=== PATIENT | female | born 1995 | race African-American/Black ===

== ENCOUNTER 2016-08-20 04:13 | Emergency (ER) | payer OTHER ==
[~2016-08-20] VITALS: Ht 170.2 cm; Wt 68.0 kg
[2016-08-20] MEDS ORDERED: ACCUNEB SO1.25 MG/1 INH (04:21)
[2016-08-20 04:37] LABS: CALCIUM 9.3 mg/dL (8.5-10.1); CREATININE 0.9 mg/dL (0.6-1.0); POTASSIUM 3.5 mmol/L (3.5-5.1)
[2016-08-20 04:51] LABS: BASOPHILS 0.8 % (0.0-2.0); EOSINOPHILS 0.2 % (0.0-3.0); HEMATOCRIT 24.6 % (37.0-47.0); HEMOGLOBIN 7.7 gm/dL (12.0-15.0); LYMPHOCYTES 41.1 % (24.0-44.0); MCH 22.1 pg (26.0-34.0); MCHC 31.3 g/dL (28.0-37.0); MCV 70.7 fL (80.0-100.0); MONOCYTES 6.2 % (1.0-8.0); PLATELET COUNT 401 thou/uL (150-400); POLYS 51.7 % (36.0-66.0); RBC 3.48 mil/uL (4.20-5.00); RDW 22.1 % (10.5-14.5); WBC 7.8 thou/uL (4.0-11.0)
[2016-08-20 04:55] LABS: MANUAL DIFF NO
[2016-08-20 05:20] VITALS: BP 124/87
[2016-08-20 05:44] LABS: ANISOCYTOSIS 2+; HYPOCHROMASIA 2+; MICROCYTES 1+
== END 2016-08-20 05:26 | disposition home or self-care (01) ==
LOC: ER 04:13 → EDBD 04:13 → ER 04:13
PROVIDERS: Emergency Medicine
DX: F10.120 Alcohol abuse with intoxication, uncomplicated (principal); D50.9 Iron deficiency anemia, unspecified; J45.909 Unspecified asthma, uncomplicated